=== PATIENT | female | born 1980 | race Caucasian/White ===

== ENCOUNTER 2023-10-26 09:16 | Inpatient (IN) | payer OTHER ==
[2023-10-26 09:52] LABS: BASOPHILS ABSOLUTE AUTO 0.03 K/uL (0.00-0.20); BASOPHILS PERCENT AUTO 0.4 % (0.0-1.0); EOSINOPHILS ABSOLUTE AUTO 0.23 K/uL (0.00-0.45); EOSINOPHILS PERCENT AUTO 3.3 % (0.0-6.0); HEMATOCRIT 33.1 % (37.0-47.0); IMMATURE GRAN ABSOLUTE AUTO 0.03 K/uL (0.00-0.05); IMMATURE GRAN PERCENT AUTO 0.4 % (0.0-0.4); LYMPHOCYTES ABSOLUTE AUTO 1.35 K/uL (1.00-4.80); LYMPHOCYTES PERCENT AUTO 19.2 % (24.0-44.0); MEAN CORPUSCULAR HEMOGLOBIN 32.6 pg (28.0-32.0); MEAN CORPUSCULAR HGB CONC 36.3 g/dL (32.0-36.0); MEAN CORPUSCULAR VOLUME 89.9 fL (83.0-99.0); MEAN PLATELET VOLUME 10.8 fL (9.4-12.3); MONOCYTES ABSOLUTE AUTO 0.37 K/uL (0.00-0.80); MONOCYTES PERCENT AUTO 5.3 % (0.0-8.0); NEUTROPHILS ABSOLUTE AUTO 5.03 K/uL (1.80-7.70); NEUTROPHILS PERCENT AUTO 71.4 % (41.0-71.0); PLATELET COUNT,PLT 233 K/uL (150-400); RED BLOOD CELL COUNT 3.68 M/uL (4.10-5.30); WHITE BLOOD CELL COUNT,WBC 7.04 K/uL (3.9-11.3)
[2023-10-26] MEDS: Sodium Chloride 0.9% 1,000 ML IV ONE (10:02)
[2023-10-26] MEDS: Magnesium Sulfate/Water 4 GM/100 ML BAG IV ONE (10:03)
[2023-10-26] MEDS: Sodium Chloride 0.9% 2.5 ML Syringe FLUSH PRN (10:04)
[2023-10-26] MEDS: Sodium Chloride 0.9% 10 ML Syringe FLUSH PRN (10:04)
[2023-10-26] MEDS: Metoclopramide 10 MG/2 ML SDV IVPUSH ONE (10:04)
[2023-10-26] MEDS: diphenhydrAMINE 50 MG/ML SDV IVPUSH ONE (10:04)
[2023-10-26 10:22] LABS: A/G RATIO 0.7 (0.9-1.6); ALANINE AMINOTRANSFERASE,ALT 51 IU/L (14-63); ALBUMIN 2.5 g/dL (3.4-5.0); ALKALINE PHOSPHATASE 50 U/L (46-116); ASPARTATE AMNIOTRANSFERASE,AST 50 IU/L (15-37); BILIRUBIN TOTAL 0.3 mg/dL (0.2-1.0); BLOOD UREA NITROGEN,BUN 11 mg/dL (7.0-18.0); CALCIUM 8.4 mg/dL (8.5-10.1); CARBON DIOXIDE,CO2 21.6 mmol/L (21.0-32.0); CHLORIDE,CL 100 mmol/L (98-107); CREATININE 0.8 mg/dL (0.6-1.0); GLUCOSE RANDOM 87 mg/dL (74-106); LACTATE DEHYDROGENASE,LDH 278 U/L (81-234); LIPASE 75 U/L (16-77); PROTEIN TOTAL,TP 6.1 g/dL (6.4-8.2); SODIUM,NA 132 mmol/L (136-145)
[2023-10-26 10:25] LABS: ESTIMATED GFR 93 mL/min (>60)
[2023-10-26 10:31] LABS: APPEARANCE,URINE CLEAR; BILIRUBIN,URINE NEGATIVE (NEGATIVE); COLOR,URINE YELLOW; GLUCOSE,URINE NEGATIVE (NEGATIVE); KETONES,URINE NEGATIVE (NEGATIVE); LEUKOCYTE ESTERASE,URINE NEGATIVE (NEGATIVE); NITRITE,URINE NEGATIVE (NEGATIVE); OCCULT BLOOD,URINE SMALL (NEGATIVE); PROTEIN,URINE NEGATIVE (NEGATIVE); UROBILINOGEN,URINE 0.2 EU/dL (<2.0)
[2023-10-26 10:39] LABS: EPITHELIAL CELLS,URINE FEW (NONE-FEW); RBC,URINE 0-2 (0-2/HPF); WBC,URINE 0-1 (0-5/HPF)
[2023-10-26 10:40] LABS: BACTERIA,URINE NOT SEEN (NEGATIVE)
[2023-10-26] MEDS: Iopamidol 755 MG/ML 500 ML Multipack Bottle IVPUSH STA (11:29)
[2023-10-26] MEDS: Magnesium Sulfate/Water 20 GM/500 ML BAG IV SCH (11:55)
[2023-10-26 12:27] LABS: TSH ULTRASENSITIVE 2.76 uIU/mL (0.36-3.74)
[2023-10-26] MEDS ORDERED: hydrALAZINE 20 MG/ML SDV IVPUSH PRN (14:01)
[2023-10-26] MEDS: Lactated Ringers 1,000 ML IV SCH (15:11)
[2023-10-26] MEDS ORDERED: Labetalol 100 MG Tab ONE (15:57)
[2023-10-26] MEDS: Labetalol 100 MG Tab PO SCH (16:00)
[2023-10-26] MEDS: Acetaminophen 325 MG Tab PO PRN (20:16)
[2023-10-26] MEDS ORDERED: Magnesium Sulfate/Water 20 GM/500 ML BAG ONE (21:58)
[2023-10-27 06:53] LABS: HEMATOCRIT 36.4 % (37.0-47.0); HEMOGLOBIN 12.9 g/dL (12.0-16.0); MEAN CORPUSCULAR HEMOGLOBIN 32.4 pg (28.0-32.0); MEAN CORPUSCULAR HGB CONC 35.4 g/dL (32.0-36.0); MEAN CORPUSCULAR VOLUME 91.5 fL (83.0-99.0); MEAN PLATELET VOLUME 10.7 fL (9.4-12.3); PLATELET COUNT,PLT 257 K/uL (150-400); RED BLOOD CELL COUNT 3.98 M/uL (4.10-5.30); WHITE BLOOD CELL COUNT,WBC 7.11 K/uL (3.9-11.3)
[2023-10-27 07:22] LABS: A/G RATIO 0.7 (0.9-1.6); ALBUMIN 2.6 g/dL (3.4-5.0); BILIRUBIN TOTAL 0.2 mg/dL (0.2-1.0); CALCIUM 6.7 mg/dL (8.5-10.1); CARBON DIOXIDE,CO2 21.8 mmol/L (21.0-32.0); CREATININE 0.8 mg/dL (0.6-1.0); EST CRCL DRUG DOSING (CG) 74.23 mL/min; MAGNESIUM 6.8 mg/dL (1.8-2.4); POTASSIUM,K 3.9 mmol/L (3.5-5.1); PROTEIN TOTAL,TP 6.4 g/dL (6.4-8.2); URIC ACID 5.9 mg/dL (2.6-7.2)
[2023-10-27] MEDS: Magnesium Sulfate/Water 20 GM/500 ML BAG IV SCH (08:19)
[2023-10-27] MEDS: Labetalol 100 MG Tab PO SCH (22:22)
[2023-10-27] MEDS: Sennosides 8.6 MG Tab PO PRN (22:36)
[2023-10-28 05:07] LABS: URINE PROTEIN <4 mg/dL (1-14)
[2023-10-28 06:08] VITALS: BP 144/72; PULSE 63
[2023-10-28] MEDS ORDERED: Labetalol 100 MG Tab PO SCH (14:00)
== END 2023-10-28 15:09 | disposition home or self-care (01) | DRG 776 ==
LOC: MW.ED 09:16 → MW.OB 11:53 → MW.ED 12:13 → OBSVTOIN 14:01
PROVIDERS: ADMIT Obstetrics & Gynecology; ATTEND Obstetrics & Gynecology
DX: O11.5 Pre-existing hypertension with pre-eclampsia, complicating the puerperium (principal); O99.893 Other specified diseases and conditions complicating puerperium; R51.9 Headache, unspecified; O99.215 Obesity complicating the puerperium; Z79.899 Other long term (current) drug therapy; Z88.8 Allergy status to other drugs, medicaments and biological substances; Z98.890 Other specified postprocedural states; Q89.2 Congenital malformations of other endocrine glands; Z87.891 Personal history of nicotine dependence
CPT/HCPCS: 36415; 70450; 70450-26; 70496; 70496-26; 70498; 70498-26; 80048; 80053; 80076; 81001; 83615; 83690; 83735; 84443; 84484; 84550; 85025; 85027; 93005; 93010; 96365; 96366; 96375; 96376; 99284; 99285-25; A9270-GY; G0378; J1200; J2765; J3475; J3490; J7030; J7120; Q9967

== ENCOUNTER 2023-10-29 11:39 | Emergency (ER) | payer OTHER ==
[2023-10-29 12:33] LABS: BASOPHILS ABSOLUTE AUTO 0.04 K/uL (0.00-0.20); BASOPHILS PERCENT AUTO 0.6 % (0.0-1.0); EOSINOPHILS ABSOLUTE AUTO 0.21 K/uL (0.00-0.45); EOSINOPHILS PERCENT AUTO 3.3 % (0.0-6.0); HEMATOCRIT 36.2 % (37.0-47.0); HEMOGLOBIN 12.8 g/dL (12.0-16.0); IMMATURE GRAN ABSOLUTE AUTO 0.02 K/uL (0.00-0.05); IMMATURE GRAN PERCENT AUTO 0.3 % (0.0-0.4); LYMPHOCYTES ABSOLUTE AUTO 1.68 K/uL (1.00-4.80); LYMPHOCYTES PERCENT AUTO 26.3 % (24.0-44.0); MEAN CORPUSCULAR HEMOGLOBIN 32.7 pg (28.0-32.0); MEAN CORPUSCULAR HGB CONC 35.4 g/dL (32.0-36.0); MEAN CORPUSCULAR VOLUME 92.3 fL (83.0-99.0); MEAN PLATELET VOLUME 10.5 fL (9.4-12.3); MONOCYTES ABSOLUTE AUTO 0.27 K/uL (0.00-0.80); MONOCYTES PERCENT AUTO 4.2 % (0.0-8.0); NEUTROPHILS ABSOLUTE AUTO 4.18 K/uL (1.80-7.70); NEUTROPHILS PERCENT AUTO 65.3 % (41.0-71.0); PLATELET COUNT,PLT 277 K/uL (150-400); RED BLOOD CELL COUNT 3.92 M/uL (4.10-5.30)
[2023-10-29] MEDS: Sodium Chloride 0.9% 10 ML Syringe FLUSH PRN (12:35)
[2023-10-29] MEDS: Sodium Chloride 0.9% 2.5 ML Syringe FLUSH PRN (12:35)
[2023-10-29 12:59] LABS: A/G RATIO 0.8 (0.9-1.6); ALANINE AMINOTRANSFERASE,ALT 41 IU/L (14-63); ALBUMIN 2.9 g/dL (3.4-5.0); ALKALINE PHOSPHATASE 48 U/L (46-116); ASPARTATE AMNIOTRANSFERASE,AST 28 IU/L (15-37); BILIRUBIN TOTAL 0.4 mg/dL (0.2-1.0); BLOOD UREA NITROGEN,BUN 15 mg/dL (7.0-18.0); CALCIUM 8.4 mg/dL (8.5-10.1); CARBON DIOXIDE,CO2 23.1 mmol/L (21.0-32.0); CHLORIDE,CL 103 mmol/L (98-107); CREATININE 0.8 mg/dL (0.6-1.0); ESTIMATED GFR 93 mL/min (>60); GLUCOSE RANDOM 80 mg/dL (74-106); POTASSIUM,K 4.6 mmol/L (3.5-5.1); PROTEIN TOTAL,TP 6.5 g/dL (6.4-8.2); SODIUM,NA 135 mmol/L (136-145)
[2023-10-29] MEDS: Labetalol 100 MG/20 ML MDV IVPUSH ONE (13:15)
[2023-10-29] MEDS: hydrALAZINE 20 MG/ML SDV IVPUSH ONE ×2 (13:54→14:59)
[2023-10-29 14:22] LABS: APPEARANCE,URINE CLEAR; BILIRUBIN,URINE NEGATIVE (NEGATIVE); GLUCOSE,URINE NEGATIVE (NEGATIVE); KETONES,URINE NEGATIVE (NEGATIVE); LEUKOCYTE ESTERASE,URINE NEGATIVE (NEGATIVE); NITRITE,URINE NEGATIVE (NEGATIVE); OCCULT BLOOD,URINE MODERATE (NEGATIVE); PH,URINE 6.5 (5.0-8.0); PROTEIN,URINE NEGATIVE (NEGATIVE); UROBILINOGEN,URINE 0.2 EU/dL (<2.0)
[2023-10-29 14:23] LABS: COLOR,URINE STRAW
[2023-10-29 14:32] LABS: AMPHETAMINES SCREEN, URINE NEGATIVE (CUTOFF=500); BARBITURATE SCREEN,URINE NEGATIVE (CUTOFF=200); BENZODIAZEPINES SCREEN,URINE NEGATIVE (CUTOFF=150); BUPRENORPHINE SCREEN,URINE NEGATIVE (CUTOFF=10); METHADONE SCREEN, URINE NEGATIVE (CUTOFF=200); METHAMPHETAMINES SCREEN, URINE NEGATIVE (CUTOFF=500); OXYCODONE SCREEN,URINE NEGATIVE (CUT0FF=100); PCP SCREEN,URINE NEGATIVE (CUTOFF=25); THC SCREEN,URINE 20 NG/ML NEGATIVE (CUTOFF=50)
[2023-10-29 14:43] LABS: BACTERIA,URINE RARE (NEGATIVE); EPITHELIAL CELLS,URINE RARE (NONE-FEW); WBC,URINE 0-2 (0-5/HPF)
[2023-10-29 15:17] VITALS: BP 137/92; PULSE 60
== END 2023-10-29 15:16 | disposition home or self-care (01) ==
LOC: MW.ED 11:39
DX: I10 Essential (primary) hypertension (principal); Z87.891 Personal history of nicotine dependence; Z88.1 Allergy status to other antibiotic agents; Z75.8 Other problems related to medical facilities and other health care
CPT/HCPCS: 36415; 80053; 80305; 81001; 83735; 84484; 85025; 93005; 96374; 99283; J0360; J3490; 93010; 99284

== ENCOUNTER 2023-10-29 20:52 | Emergency (ER) | payer OTHER ==
[2023-10-29 22:22] VITALS: BP 159/91; PULSE 66
== END 2023-10-29 22:22 | disposition home or self-care (01) ==
LOC: MW.ED 20:52
DX: I10 Essential (primary) hypertension (principal); Z87.891 Personal history of nicotine dependence; Z88.8 Allergy status to other drugs, medicaments and biological substances
CPT/HCPCS: 99282; 99283

== ENCOUNTER 2025-01-26 07:26 | Day surgery (SDC) | payer OTHER ==
[~2025-01-26 07:26] MED LIST: Albuterol 0.083% 2.5 MG/3 ML Neb Soln NEB PRN; Midazolam 1 MG/ML 2 ML SDV ONE; Naloxone 0.4 MG/ML SDV IVPUSH PRN; Ondansetron 4 MG/2 ML SDV IVPUSH PRN; Propofol 200 MG/20 ML SDV ONE; Ropivacaine 0.5% 5 MG/ML 30 ML SDV ONE; Scopalamine 1mg/3day Transdermal Patch TOP ONE; dexmedeTOMIDine HCl 200 MCG/2 ML SDV ONE; fentaNYL 100 MCG/2 ML SDV ONE; fentaNYL 50 MCG/ML SDV IVPUSH PRN
[2025-01-26] MEDS ORDERED: ceFAZolin 2 GM in Water For Injection, Sterile 20 ML IVPUSH ONE (08:00)
[2025-01-26] MEDS ORDERED: Bupivacaine 0.5%/EPINEPHrine 1:200,000 30 ML SDV ONE (08:03)
[2025-01-26] MEDS: Lactated Ringers 1,000 ML IV SCH (08:09)
[2025-01-26] MEDS: Scopalamine 1mg/3day Transdermal Patch TOP ONE (08:10)
[2025-01-26] MEDS ORDERED: Ondansetron 4 MG/2 ML SDV ONE ×2 (08:22)
[2025-01-26] MEDS ORDERED: propofoL 500 MG/50 ML 0 ML ONE (08:42)
[2025-01-26] MEDS ORDERED: Phenylephrine 1% 10 MG/ML SDV ONE (09:24)
[2025-01-26] MEDS ORDERED: propofoL 500 MG/50 ML 50 ML ONE (09:32)
[2025-01-26] MEDS ORDERED: Propofol 200 MG/20 ML SDV ONE (09:33)
[2025-01-26 13:36] VITALS: BP 143/82; PULSE 67
== END 2025-01-26 13:10 | disposition home or self-care (01) ==
LOC: MW.SDS 07:26
PROVIDERS: ATTEND Orthopaedic Surgery
DX: S83.512A Sprain of anterior cruciate ligament of left knee, initial encounter (principal); E66.811 Obesity, class 1; I10 Essential (primary) hypertension; Z88.1 Allergy status to other antibiotic agents; Z68.36 Body mass index [BMI] 36.0-36.9, adult; Z79.899 Other long term (current) drug therapy
CPT/HCPCS: 29888; 81025; A9270; C1713; J0690; J2003; J2250; J2371; J2405; J2704; J2795; J7120; 01400; 64450; J0665; J3010

== ENCOUNTER 2025-03-13 07:44 | Emergency (ER) | payer OTHER ==
[2025-03-13] MEDS ORDERED: Sodium Chloride 0.9% 2.5 ML Syringe FLUSH PRN (08:11)
[2025-03-13] MEDS ORDERED: Sodium Chloride 0.9% 10 ML Syringe FLUSH PRN (08:11)
[2025-03-13 08:31] LABS: BASOPHILS ABSOLUTE AUTO 0.05 K/uL (0.00-0.20); BASOPHILS PERCENT AUTO 0.7 % (0.0-1.0); EOSINOPHILS ABSOLUTE AUTO 0.33 K/uL (0.00-0.45); EOSINOPHILS PERCENT AUTO 4.7 % (0.0-6.0); IMMATURE GRAN ABSOLUTE AUTO 0.02 K/uL (0.00-0.05); IMMATURE GRAN PERCENT AUTO 0.3 % (0.0-0.4); LYMPHOCYTES ABSOLUTE AUTO 2.00 K/uL (1.00-4.80); LYMPHOCYTES PERCENT AUTO 28.2 % (24.0-44.0); MEAN PLATELET VOLUME 10.7 fL (9.4-12.3); MONOCYTES ABSOLUTE AUTO 0.39 K/uL (0.00-0.80); MONOCYTES PERCENT AUTO 5.5 % (0.0-8.0); NEUTROPHILS ABSOLUTE AUTO 4.29 K/uL (1.80-7.70); NEUTROPHILS PERCENT AUTO 60.6 % (41.0-71.0); NRBC ABSOLUTE 0.00 K/uL (0.00-0.02); NRBC PERCENT 0.0 /100WBC (0.0-0.2); PLATELET COUNT,PLT 282 K/uL (150-400); RED BLOOD CELL COUNT 4.40 M/uL (4.10-5.30); WHITE BLOOD CELL COUNT,WBC 7.08 K/uL (3.9-11.3)
[2025-03-13 08:52] LABS: A/G RATIO 1.1 (0.9-1.6); ALANINE AMINOTRANSFERASE,ALT 29.0 IU/L (14-63); ASPARTATE AMNIOTRANSFERASE,AST 15.0 IU/L (15-37); BILIRUBIN TOTAL 0.3 mg/dL (0.2-1.0); BLOOD UREA NITROGEN,BUN 13.0 mg/dL (7.0-18.0); CARBON DIOXIDE,CO2 27.5 mmol/L (21.0-32.0); CHLORIDE,CL 104.0 mmol/L (98-107); CREATININE 0.8 mg/dL (0.6-1.0); EST CRCL DRUG DOSING (CG) 73.46 mL/min; GLUCOSE RANDOM 102.0 mg/dL (74-106); POTASSIUM,K 4.4 mmol/L (3.5-5.1); PROTEIN TOTAL,TP 7.1 g/dL (6.4-8.2); SODIUM,NA 137.0 mmol/L (136-145)
[2025-03-13 08:53] LABS: ESTIMATED GFR 93.0 mL/min (>60)
[2025-03-13] MEDS: Ketorolac 30 MG/ML SDV IVPUSH ONE (09:07)
[2025-03-13 09:11] VITALS: BP 112/69; PULSE 66
== END 2025-03-13 09:14 | disposition home or self-care (01) ==
LOC: MW.ED 07:44
DX: G93.9 Disorder of brain, unspecified (principal); I10 Essential (primary) hypertension; E66.9 Obesity, unspecified; Z39.1 Encounter for care and examination of lactating mother; Z88.1 Allergy status to other antibiotic agents; Z79.899 Other long term (current) drug therapy; Z68.36 Body mass index [BMI] 36.0-36.9, adult
CPT/HCPCS: 36415; 70450; 80053; 83735; 85025; 96374; 99284; A9270; J1885; 99283